=== PATIENT | male | born 1970 | race African-American/Black ===

== ENCOUNTER 2020-04-07 19:20 | Emergency (ER) | payer MEDICAID ==
[~2020-04-07] VITALS: Ht 177.8 cm; Wt 5.0 kg
[2020-04-07 21:06] VITALS: BP 134/91
== END 2020-04-07 21:06 | disposition home or self-care (01) ==
LOC: ER 19:47
DX: K64.9 Unspecified hemorrhoids (principal); R33.9 Retention of urine, unspecified; Z88.0 Allergy status to penicillin; Z96.649 Presence of unspecified artificial hip joint
CPT/HCPCS: 93005; 99281; 99284

== ENCOUNTER 2025-01-12 09:16 | Emergency (ER) | payer MEDICAID ==
[~2025-01-12] VITALS: Ht 172.7 cm; Wt 68.0 kg
[~2025-01-12 09:16] MED LIST: FINA5TAB11 PO; TAMS-54 PO
[2025-01-12 09:17] VITALS: BP 160/100; PULSE 93; RESP 14; TEMP 36.7; O2SAT 99
[2025-01-12 10:38] LABS: CLARITY URINE CLOUDY (CLEAR); COLOR URINE YELLOW (YELLOW); GLUCOSE URINE NEGATIVE (NEGATIVE); KETONES URINE NEGATIVE (NEGATIVE); LEUKOCYTE ESTERASE URINE 3+ (NEGATIVE); NITRITE URINE NEGATIVE (NEGATIVE); OCCULT BLOOD URINE 2+ (NEGATIVE); PH URINE 6.5 (4.5-8.0); PROTEIN URINE 2+ (NEGATIVE); SPECIFIC GRAVITY URINE 1.008 (1.005-1.030); UROBILINOGEN URINE 0.2 E.U./dL (0.2-1.0)
[2025-01-12] MEDS ORDERED: CIPR-452 MT (10:53)
[2025-01-12 11:26] LABS: BACTERIA URINE TRACE; SQUAMOUS EPITHELIAL CELL URINE NONE SEEN /lpf (RARE/1+)
[2025-01-12 11:27] LABS: RBC URINE 0-2 /hpf (0-2); WBC URINE 50-100 /hpf (0-2)
== END 2025-01-12 11:22 | disposition home or self-care (01) ==
LOC: ER 09:16
DX: S00.501D Unspecified superficial injury of lip, subsequent encounter (principal); N39.0 Urinary tract infection, site not specified; F17.220 Nicotine dependence, chewing tobacco, uncomplicated; I10 Essential (primary) hypertension; Z88.0 Allergy status to penicillin; F19.90 Other psychoactive substance use, unspecified, uncomplicated; X58.XXXA Exposure to other specified factors, initial encounter
CPT/HCPCS: 81003; 87077; 87186; 99283; 99406